=== PATIENT | female | born 1980 | race American Indian/Alaskan Native ===

== ENCOUNTER 2016-12-27 06:53 | Day surgery (SDC) | payer BC ==
[2016-12-27 09:52] VITALS: BP 139/67
--- NOTE | 2016-12-27 09:54 | Short Stay Summary ---
Short Stay Documentation Date of service: 12/27/16 - History Principal diagnosis: left thyroid nodule H&P: obtained from office - Allergies and Medications Current Medications: Allergies No Known Allergies Allergy (Unverified 12/27/16 06:53) Home Medications Medication Instructions Recorded Confirmed Last Taken Type Levothyroxine [Synthroid] 25 mcg PO DAILY 12/27/16 12/27/16 12/26/16 History 25mcg Metformin HCl [metFORMIN ER] 500 mg PO BID 12/27/16 12/27/16 12/13/16 History - Physical exam General appearance: no acute distress HEENT: Atraumatic, PERRLA, Mucous membr. moist/pink - Brief post op/procedure progress note Date of procedure: 12/27/16 Pre-op diagnosis: left thyroid nodule Post-op diagnosis: same Procedure: US thyroid biopsy Anesthesia: local Findings: 2.3cm left thyroid nodule Surgeon: LORRIE FINCH Estimated blood loss: none Pathology: list (FNA x 2, rotex biopsy) Specimen disposition: to lab Condition: stable - Disposition Condition at discharge: Good Disposition: DISCHARGED TO HOME OR SELFCARE Short Stay Discharge Plan Follow up with: JENAE CAMPA MD [Primary Care Provider] - 7 Days
--- NOTE | 2016-12-27 09:56 | Ultrasound Report ---
ULTRASOUND BIOPSY THYROID HISTORY: Thyroid nodule, hyperthyroidism. DESCRIPTION OF PROCEDURE: Informed consent was obtained. Sterile technique was utilized. 1% lidocaine for skin anesthesia. Using ultrasound guidance, 2 fine needle aspirations and one Rotex biopsy were obtained from a 2.8 cm left thyroid lobe mass. The samples were deemed adequate by the pathologist on site. No complications. IMPRESSION: Successful ultrasound-guided biopsy of the left thyroid mass as described.
== END 2016-12-27 10:15 | disposition home or self-care (01) ==
LOC: OPU 06:53 → EDSTATUS 07:30 → OPU 10:15
PROVIDERS: ATTEND Internal Medicine Endocrinology, Diabetes & Metabolism
DX: E05.10 Thyrotoxicosis with toxic single thyroid nodule without thyrotoxic crisis or storm (principal)
CPT/HCPCS: 60100; 76942; 88112; 88172; 88173; 88305

== ENCOUNTER 2019-08-10 14:15 | Emergency (ER) | payer SELFPAY ==
--- NOTE | 2019-08-10 15:00 | Event Note ---
ED Screening Note Date of service: 08/10/19 Time: 14:56 ED Screening Note: This initial assessment/diagnostic orders/clinical plan/treatment(s) is/are subject to change based on patients health status, clinical progression and re- assessment by fellow clinical providers in the ED. Further treatment and workup at subsequent clinical providers discretion. Patient/guardian urged not to elope from the ED as their condition may be serious if not clinically assessed and managed. 39yo female c/o productive cough x 2 weeks. Last 2 days bodyaches and chills. C/o chest pain off and on while working. She cleans offices. Pt also report hx of thyroid disease and has not taken thyroid meds for months. Initial orders include: Chest xray EKG Flu swab
--- NOTE | 2019-08-10 15:52 | XRay Report ---
CHEST 2 VIEWS INDICATION: cough chest pain. COMPARISON: None FINDINGS: Support devices: None. Heart: Within normal limits. Lungs/pleura: No acute air space or interstitial disease. No pneumothorax. Additional findings: None. IMPRESSION: 1. No acute findings. Signer Name: Adam Kimbrough MD Signed: 08/10/2019 3:47 PM Workstation Name: [id number]
== END 2019-08-10 15:26 | disposition left against medical advice (07) ==
LOC: ED 14:15
DX: R05 Cough (principal); Z53.21 Procedure and treatment not carried out due to patient leaving prior to being seen by health care provider
CPT/HCPCS: 71046; 87400; 93005; 93010